=== PATIENT | female | born 1965 | race Caucasian/White ===

== ENCOUNTER 2018-04-14 15:03 | Emergency (ER) | payer OTHER ==
[~2018-04-14] VITALS: Ht 154.9 cm; Wt 57.3 kg
[2018-04-14 15:11] VITALS: Ht 154.9 cm; Wt 57.3 kg
[2018-04-14 16:13] VITALS: BP 130/80
== END 2018-04-14 16:13 | disposition home or self-care (01) ==
LOC: ED 15:03
DX: A60.04 Herpesviral vulvovaginitis (principal); E11.9 Type 2 diabetes mellitus without complications
CPT/HCPCS: 87491; 87591

== ENCOUNTER 2019-05-11 14:45 | Emergency (ER) | payer OTHER ==
[~2019-05-11] VITALS: Ht 154.9 cm; Wt 53.5 kg
[2019-05-11 14:53] VITALS: Ht 154.9 cm; Wt 53.5 kg
[2019-05-11 17:24] VITALS: BP 135/87
== END 2019-05-11 17:24 | disposition home or self-care (01) ==
LOC: ED 14:45
DX: S51.832A Puncture wound without foreign body of left forearm, initial encounter (principal); E11.9 Type 2 diabetes mellitus without complications; F15.10 Other stimulant abuse, uncomplicated; W57.XXXA Bitten or stung by nonvenomous insect and other nonvenomous arthropods, initial encounter; Y93.89 Activity, other specified; Y92.89 Other specified places as the place of occurrence of the external cause; Y99.8 Other external cause status
CPT/HCPCS: J1100

== ENCOUNTER 2019-11-12 07:56 | Emergency (ER) | payer OTHER ==
[~2019-11-12] VITALS: Ht 154.9 cm; Wt 50.6 kg
[2019-11-12 08:06] VITALS: BP 127/76; Ht 154.9 cm; Wt 50.6 kg
== END 2019-11-12 08:56 | disposition home or self-care (01) ==
LOC: ED 07:56
DX: R05 Cough (principal); F17.210 Nicotine dependence, cigarettes, uncomplicated; R07.89 Other chest pain; J02.9 Acute pharyngitis, unspecified; E11.9 Type 2 diabetes mellitus without complications
CPT/HCPCS: 99406; Q0092

== ENCOUNTER 2019-11-15 20:09 | Inpatient (IN) | payer OTHER ==
[~2019-11-15] VITALS: Ht 154.9 cm; Wt 54.5 kg
[2019-11-15 20:45] VITALS: Ht 154.9 cm; Wt 54.5 kg
[2019-11-15 21:37] LABS: BASOPHIL % 0.2 % (0-2); PLATELET COUNT 181 x10^3mcL (130-400); RED CELL DISTRIBUTION WIDTH 12.6 % (11.5-14.5)
[2019-11-15 22:07] LABS: CARBON DIOXIDE 24.8 mmol/L (21-32); CHLORIDE SERUM 92 mmol/L (98-107); POTASSIUM SERUM 4.3 mmol/L (3.5-5.1); SODIUM SERUM 126 mmol/L (136-145)
[2019-11-15 22:10] LABS: ALBUMIN 3.5 g/dL (3.4-5.0); AST/SGOT 74 U/L (15-37); BILIRUBIN TOTAL 0.7 mg/dL (0.20-1.00); CALCIUM 8.6 mg/dL (8.5-10.1); CREATININE SERUM 0.8 mg/dL (0.6-1.0); GFR1 > 60 mL/min; GLUCOSE SERUM 491 mg/dL (74-106); TOTAL PROTEIN, SERUM 8.4 g/dL (6.4-8.2)
[2019-11-15 22:11] LABS: ALKALINE PHOSPHATASE 219 U/L (46-116); ALT/SGPT 128 U/L (14-59)
[2019-11-15 22:15] LABS: CARBON DIOXIDE 25.5 mmol/L (21-32); CHLORIDE SERUM 91 mmol/L (98-107); POTASSIUM SERUM 4.3 mmol/L (3.5-5.1); SODIUM SERUM 126 mmol/L (136-145)
[2019-11-15 22:16] LABS: CALCIUM 8.6 mg/dL (8.5-10.1); CREATININE SERUM 0.8 mg/dL (0.6-1.0); GFR1 > 60 mL/min; GLUCOSE SERUM 496 mg/dL (74-106); MAGNESIUM 2.1 mg/dL (1.8-2.4)
[2019-11-16 00:31] LABS: microscopic required? NO
[2019-11-16 00:38] LABS: urine erythrocyte NEGATIVE (NEGATIVE)
[2019-11-16 00:58] LABS: AMPHETAMINE QUAL UR POSITIVE (See below)
[2019-11-16 01:13] LABS: CARBON DIOXIDE 24.4 mmol/L (21-32); CHLORIDE SERUM 102 mmol/L (98-107); POTASSIUM SERUM 3.4 mmol/L (3.5-5.1); SODIUM SERUM 134 mmol/L (136-145)
[2019-11-16 01:14] LABS: CREATININE SERUM 0.5 mg/dL (0.6-1.0); GFR1 > 60 mL/min; GLUCOSE SERUM 283 mg/dL (74-106); MAGNESIUM 1.6 mg/dL (1.8-2.4); PHOSPHOROUS 2.7 mg/dL (2.5-4.9)
[2019-11-16 05:07] LABS: BASOPHIL % 0.3 % (0-2); PLATELET COUNT 154 x10^3mcL (130-400); RED CELL DISTRIBUTION WIDTH 12.4 % (11.5-14.5)
[2019-11-16 05:14] LABS: CARBON DIOXIDE 26.3 mmol/L (21-32); CHLORIDE SERUM 102 mmol/L (98-107); POTASSIUM SERUM 3.1 mmol/L (3.5-5.1); SODIUM SERUM 136 mmol/L (136-145)
[2019-11-16 05:15] LABS: CALCIUM 7.2 mg/dL (8.5-10.1); CREATININE SERUM 0.6 mg/dL (0.6-1.0); GFR1 > 60 mL/min; GLUCOSE SERUM 239 mg/dL (74-106); MAGNESIUM 1.6 mg/dL (1.8-2.4)
[2019-11-16 08:46] LABS: CARBON DIOXIDE 26 mmol/L (21-32); CHLORIDE SERUM 104 mmol/L (98-107); GLUCOSE SERUM 154 mg/dL (74-106); POTASSIUM SERUM 3.5 mmol/L (3.5-5.1); SODIUM SERUM 139 mmol/L (136-145)
[2019-11-16 08:47] LABS: CALCIUM 7.9 mg/dL (8.5-10.1); CREATININE SERUM 0.6 mg/dL (0.6-1.0); GFR1 > 60 mL/min; MAGNESIUM 1.8 mg/dL (1.8-2.4); PHOSPHOROUS 2.7 mg/dL (2.5-4.9)
[2019-11-16 10:49] VITALS: BP 147/95
[2019-11-16 12:15] VITALS: BP 149/53
[2019-11-16 17:00] VITALS: BP 154/95
[2019-11-16 20:59] VITALS: BP 154/95
[2019-11-17 06:06] VITALS: BP 140/89
[2019-11-17 07:00] LABS: BASOPHIL % 0.2 % (0-2); PLATELET COUNT 160 x10^3mcL (130-400); RED CELL DISTRIBUTION WIDTH 12.8 % (11.5-14.5)
[2019-11-17 07:41] LABS: CARBON DIOXIDE 26.9 mmol/L (21-32); CHLORIDE SERUM 101 mmol/L (98-107); CREATININE SERUM 0.5 mg/dL (0.6-1.0); GFR1 > 60 mL/min; GLUCOSE SERUM 215 mg/dL (74-106); PHOSPHOROUS 2.2 mg/dL (2.5-4.9); POTASSIUM SERUM 3.6 mmol/L (3.5-5.1); SODIUM SERUM 135 mmol/L (136-145)
[2019-11-17 07:42] LABS: MAGNESIUM 1.7 mg/dL (1.8-2.4)
[2019-11-17 08:47] VITALS: BP 138/90
[2019-11-17 09:27] VITALS: BP 138/90
[2019-11-17 13:04] VITALS: BP 142/92
[2019-11-17 17:30] VITALS: BP 149/92
[2019-11-17 22:45] VITALS: BP 146/89
[2019-11-18 06:08] VITALS: BP 125/84
[2019-11-18 07:00] LABS: BASOPHIL % 0.3 % (0-2); PLATELET COUNT 163 x10^3mcL (130-400); RED CELL DISTRIBUTION WIDTH 12.6 % (11.5-14.5)
[2019-11-18 08:10] LABS: CARBON DIOXIDE 27.1 mmol/L (21-32); CHLORIDE SERUM 102 mmol/L (98-107); POTASSIUM SERUM 3.6 mmol/L (3.5-5.1); SODIUM SERUM 136 mmol/L (136-145)
[2019-11-18 08:11] LABS: CALCIUM 7.8 mg/dL (8.5-10.1); CREATININE SERUM 0.6 mg/dL (0.6-1.0); GFR1 > 60 mL/min; GLUCOSE SERUM 279 mg/dL (74-106)
[2019-11-18 09:02] VITALS: BP 127/87
[2019-11-18 13:02] VITALS: BP 150/86
[2019-11-18 18:00] VITALS: BP 122/77
[2019-11-18 21:06] VITALS: BP 144/91
[2019-11-19 05:55] VITALS: BP 138/89
[2019-11-19 06:38] LABS: BASOPHIL % 0.4 % (0-2); PLATELET COUNT 191 x10^3mcL (130-400); RED CELL DISTRIBUTION WIDTH 12.6 % (11.5-14.5)
[2019-11-19 06:56] LABS: CALCIUM 7.8 mg/dL (8.5-10.1); CARBON DIOXIDE 29.2 mmol/L (21-32); CHLORIDE SERUM 98 mmol/L (98-107); CREATININE SERUM 0.6 mg/dL (0.6-1.0); GFR1 > 60 mL/min; GLUCOSE SERUM 393 mg/dL (74-106); POTASSIUM SERUM 3.8 mmol/L (3.5-5.1); SODIUM SERUM 133 mmol/L (136-145)
[2019-11-19 08:52] VITALS: BP 146/94
[2019-11-19 13:04] VITALS: BP 136/79
[2019-11-19 16:38] VITALS: BP 117/85
[2019-11-19 19:25] VITALS: BP 118/79
[2019-11-20 05:42] VITALS: BP 125/87
[2019-11-20 07:06] LABS: BASOPHIL % 0.3 % (0-2); PLATELET COUNT 206 x10^3mcL (130-400); RED CELL DISTRIBUTION WIDTH 12.9 % (11.5-14.5)
[2019-11-20 07:08] LABS: CARBON DIOXIDE 32.5 mmol/L (21-32); CHLORIDE SERUM 98 mmol/L (98-107); GLUCOSE SERUM 275 mg/dL (74-106); POTASSIUM SERUM 4.1 mmol/L (3.5-5.1); SODIUM SERUM 132 mmol/L (136-145)
[2019-11-20 07:09] LABS: CREATININE SERUM 0.6 mg/dL (0.6-1.0); GFR1 > 60 mL/min
[2019-11-20 07:10] LABS: CALCIUM 8.3 mg/dL (8.5-10.1)
[2019-11-20 09:07] VITALS: BP 132/80
[2019-11-20] MEDS ORDERED: CIPRO500 MG PO (10:06)
[2019-11-20 10:26] VITALS: BP 132/80
[2019-11-20] MEDS ORDERED: AUGMENTIN1 TA1 PO (11:03)
[2019-11-20 11:05] VITALS: BP 132/80
[2019-11-20 12:23] VITALS: BP 124/81
== END 2019-11-20 13:28 | disposition home or self-care (01) | DRG 420 ==
LOC: ED 20:09 → IC 23:10 → DU 23:10 → MU 11-16 15:38
PROVIDERS: Emergency Medicine; ADMIT Internal Medicine
DX: E11.10 Type 2 diabetes mellitus with ketoacidosis without coma (principal); E87.8 Other disorders of electrolyte and fluid balance, not elsewhere classified; E87.1 Hypo-osmolality and hyponatremia; B18.2 Chronic viral hepatitis C; R74.0 Nonspecific elevation of levels of transaminase and lactic acid dehydrogenase [LDH]; F15.10 Other stimulant abuse, uncomplicated; F17.210 Nicotine dependence, cigarettes, uncomplicated; H70.002 Acute mastoiditis without complications, left ear; B96.1 Klebsiella pneumoniae [K. pneumoniae] as the cause of diseases classified elsewhere; H66.92 Otitis media, unspecified, left ear; Z59.0 Homelessness; Z79.4 Long term (current) use of insulin; Z68.21 Body mass index [BMI] 21.0-21.9, adult; Z83.3 Family history of diabetes mellitus; Z72.89 Other problems related to lifestyle; Z23 Encounter for immunization; Z79.899 Other long term (current) drug therapy
CPT/HCPCS: 82962; 90658; 90732; G0378; J1815; J2543; J7030; J7620; Q0092

== ENCOUNTER 2020-05-21 03:28 | Emergency (ER) | payer OTHER ==
[~2020-05-21] VITALS: Ht 154.9 cm; Wt 52.2 kg
[~2020-05-21 03:28] MED LIST: AUGMENTIN1 TA1 PO; CIPRO500 MG PO
[2020-05-21 03:30] VITALS: BP 139/93; Ht 154.9 cm; Wt 52.2 kg
== END 2020-05-21 04:25 | disposition home or self-care (01) ==
LOC: ED 03:28
DX: U07.1 COVID-19 (principal); E11.9 Type 2 diabetes mellitus without complications
CPT/HCPCS: U0003-CS

== ENCOUNTER 2020-05-23 09:32 | Emergency (ER) | payer OTHER ==
[~2020-05-23] VITALS: Ht 157.5 cm; Wt 55.3 kg
[2020-05-23 09:34] VITALS: Ht 157.5 cm; Wt 55.3 kg
[2020-05-23 09:45] VITALS: BP 142/92
== END 2020-05-23 09:45 | disposition home or self-care (01) ==
LOC: ED 09:32
DX: U07.1 COVID-19 (principal); E11.9 Type 2 diabetes mellitus without complications; Z20.828 Contact with and (suspected) exposure to other viral communicable diseases

== ENCOUNTER 2020-06-21 07:47 | Emergency (ER) | payer OTHER ==
[~2020-06-21] VITALS: Ht 154.9 cm; Wt 53.5 kg
[2020-06-21 07:52] VITALS: Ht 154.9 cm; Wt 53.5 kg
[2020-06-21 08:38] LABS: microscopic required? NO
[2020-06-21 08:57] LABS: BASOPHIL % 0.3 % (0-2); RED CELL DISTRIBUTION WIDTH 13.2 % (11.5-14.5)
[2020-06-21 09:03] LABS: PLATELET COUNT 123 x10^3mcL (130-400)
[2020-06-21 09:04] LABS: CALCIUM 7.8 mg/dL (8.5-10.1); CARBON DIOXIDE 27.8 mmol/L (21-32); CHLORIDE SERUM 99 mmol/L (98-107); CREATININE SERUM 0.7 mg/dL (0.6-1.0); GFR1 > 60 mL/min; GLUCOSE SERUM 415 mg/dL (74-106); POTASSIUM SERUM 3.8 mmol/L (3.5-5.1); SODIUM SERUM 132 mmol/L (136-145)
[2020-06-21 09:08] LABS: ALKALINE PHOSPHATASE 301 U/L (46-116); ALT/SGPT 130 U/L (14-59); AST/SGOT 103 U/L (15-37); BILIRUBIN TOTAL 0.53 mg/dL (0.20-1.00); TOTAL PROTEIN, SERUM 6.8 g/dL (6.4-8.2)
[2020-06-21 09:15] LABS: ALBUMIN 2.8 g/dL (3.4-5.0)
[2020-06-21 09:29] LABS: AMPHETAMINE QUAL UR POSITIVE (See below)
[2020-06-21 09:31] LABS: UA SPECIFIC GRAVITY 1.015 (1.005-1.035); urine erythrocyte NEGATIVE (NEGATIVE)
[2020-06-21 10:13] VITALS: BP 122/65
== END 2020-06-21 10:13 | disposition home or self-care (01) ==
LOC: ED 07:47
PROVIDERS: Emergency Medicine
DX: F15.921 Other stimulant use, unspecified with intoxication delirium (principal); R53.83 Other fatigue; E11.65 Type 2 diabetes mellitus with hyperglycemia
CPT/HCPCS: 83880; 85378; Q0092